=== PATIENT | male | born 1945 | race Caucasian/White ===

== ENCOUNTER 2016-07-14 18:54 | Emergency (ER) | payer MEDICARE, OTHER ==
[~2016-07-14 18:54] MED LIST: ACET500CAP PO; ALAVERT10 MG PO; AMIT75 PO; AMITRIPTYLIN150 MG PO; ATV1 PO; B121000P IM; CAT1 PO; CAT2 PO; CLARIT10 PO; CORTEF20 MG PO; CREON DR PO; DIL4TAB PO; FL250 PO; FLAGYL250 MG PO; FLOMAX4 PO; HYDROCORTISONE; HYDROCORTISONE PO; HYDROXYCHLORQUINE; KLONO1 PO; LIDODERM T; LYRICA50 PO; NEXIUM20 M1 PO; NORV5 PO; P1 PO; P10 PO; P20 PO; PCET PO; PEP20 PO; PERCOCET 10/3251 TAB PO; PERCOCET1 TA4 PO; PLAQ200B PO; PR25 PO; REFRESH OPH; REMICADE IV; REST15 PO; RESTORIL30 MG PO; VITAMIN D31000 UNIT PO; VITD PO; Z300 PO; ZANAFLEX 4 MG TA4 MG PO; [UNRECOGNIZED DRUG - CODE] PO
[2016-07-14 20:13] LABS: BASOPHILS 0.3 %; BASOPHILS ABSOLUTE 0.02 10/3/uL (0.0-0.16); EOSINOPHILS 1.2 %; EOSINOPHILS ABSOLUTE 0.09 10/3/uL (0.0-0.53); ER CBC TAT 0 Hrs 08 Mins; HEMATOCRIT 35.7 % (40.0-51.0); IMMATURE GRANULOCYTES 0.3 %; IMMATURE GRANULOCYTES ABSOLUTE 0.02 10/3/uL (0.0-0.11); LYMPHOCYTES 36.2 %; LYMPHOCYTES ABSOLUTE 2.81 10/3/uL (0.67-4.30); MEAN CORPUS HGB CONC 33.6 g/dL (32.0-36.0); MEAN CORPUSCULAR HEMOGLOB 33.2 pg (26.0-34.0); MEAN PLATELET VOLUME 9.3 fL (9.2-13.0); MONOCYTES 13.3 %; MONOCYTES ABSOLUTE 1.03 10/3/uL (0.21-1.20); NEUTROPHILS 48.7 %; PLATELET COUNT 189 10/3/uL (150-400); RBC DISTRIBUTION WIDTH 12.6 % (12.0-16.0); RED CELL COUNT 3.61 10/6/uL (4.7-6.1); WHITE BLOOD CELLS 7.8 10/3/uL (4.5-10.5)
[2016-07-14 20:14] LABS: MANUAL DIFF NO %; MEAN CORPUSCULAR VOLUME 98.9 fL (80-100)
[2016-07-14 20:22] LABS: INTERNATIONAL NORMAL RATI 1.2 UNITS (-)
[2016-07-14 20:26] LABS: ALBUMIN 3.2 G/DL (3.5-5.0); CALCIUM, SERUM 8.4 MG/DL (8.5-10.4); CHLORIDE, SERUM 107 MMOL/L (96-112); CO2 (CARBON DIOXIDE) 23 MMOL/L (24-34); CREATININE 1.71 MG/DL (0.70-1.30); GFR AFRICAN AMERICAN 47 ML/MIN (>=60); GFR NON AFRICAN AMERICAN 40 ML/MIN (>=60); POTASSIUM, SERUM 4.2 MMOL/L (3.5-5.3); SGOT(AST) 27 U/L (5-40); SGPT(ALT) 32 U/L (5-65); SODIUM, SERUM 141 MMOL/L (135-148); TOTAL BILIRUBIN 0.4 MG/DL (0-1.2)
[2016-07-14 20:28] LABS: A/G RATIO 0.8 (0.7-1.9); ALKALINE PHOSPHATASE 117 U/L (45-117); BUN (BLOOD UREA NITROGEN) 22 MG/DL (6-23); GLOBULIN 3.8 G/DL (2.5-4.1); GLUCOSE, SERUM 86 MG/DL (60-99)
[2016-12-19] MEDS ORDERED: B121000P SC (08:44)
== END 2016-07-14 22:19 | disposition home or self-care (01) ==
LOC: ER 18:54
PROVIDERS: Emergency Medicine
DX: J40 Bronchitis, not specified as acute or chronic (principal); R04.2 Hemoptysis; I48.91 Unspecified atrial fibrillation; Z88.2 Allergy status to sulfonamides; Z88.5 Allergy status to narcotic agent; Z79.899 Other long term (current) drug therapy
CPT/HCPCS: 36415; 71010; 80053; 85025; 85610; 85730; 86850; 86900; 86901; 93005; 99285; A9270-GY